=== PATIENT | female | born 1950 | race Caucasian/White ===

== ENCOUNTER → 2019-02-06 | Outpatient (CLI) | payer MEDICARE, OTHER ==
[~2019-02-06] MED LIST: ASPI-496 PO; DICL100G19 TP; DULO60CA7 PO; FEXO180T72 PO; FLAX10004 PO; FURO20TA3 PO; GABA300C10 PO; IBUP-1623 PO; LACT1CAP35 PO; LIDO700A42 TD; METF500T17 PO; MONT10TA9 PO; MULT-658 PO; POLY17PO5 PO; POTA10TA6 PO; TRAM200T35 PO; TRAM50TA2 PO; TRIA15CR53 TP; WHEA1POW5 PO; lidocaine; potassium chloride PO
[2019-02-06 11:23] LABS: BASOPHILS # (AUTO) 0.05 x10^3/uL (0-0.1); BASOPHILS % (AUTO) 1 % (0-1); EOSINOPHILS # (AUTO) 0.18 x10^3/uL (0-0.4); EOSINOPHILS % (AUTO) 3 % (1-7); LYMPHOCYTES # (AUTO) 1.35 x10^3/uL (1-3.4); LYMPHOCYTES % (AUTO) 20 % (22-44); MD NO; MEAN CORPUSCULAR HEMOGLOBIN 26.8 pg (27.0-34.8); MEAN CORPUSCULAR VOLUME 83.5 fL (80-100); MONOCYTES # (AUTO) 0.61 x10^3/uL (0.2-0.8); MONOCYTES % (AUTO) 9 % (2-9); NEUTROPHILS # (AUTO) 4.48 x10^3/uL (1.8-6.8); NEUTROPHILS % (AUTO) 67 % (42-75); PLATELET COUNT 311 x10^3/uL (130-400); RED BLOOD COUNT 4.14 x10^6/uL (3.82-5.3); RED CELL DISTRIBUTION WIDTH 14.3 % (9.6-15.2)
[2019-02-06 11:31] LABS: CULTURE INDICATED? NO; MICROSCOPIC NOT IND
[2019-02-06 11:32] LABS: INTERNATIONAL NORMALIZED RATIO 0.92 (0.93-1.1); PROTHROMBIN TIME 9.7 Seconds (9.6-11.5)
[2019-02-06 11:33] LABS: ALANINE AMINOTRANSFERASE 34 U/L (12-78); ALBUMIN 3.4 g/dL (3.4-5.0); ANION GAP 4 mmol/L (5-15); CALCIUM 8.9 mg/dL (8.5-10.1); CHLORIDE 109 mmol/L (98-107); CREATININE 0.64 mg/dL (0.55-1.02)
[2019-02-06 11:36] LABS: ALKALINE PHOSPHATASE 107 U/L (45-117); BILIRUBIN,TOTAL 0.2 mg/dL (0.2-1.0); TOTAL PROTEIN 6.7 g/dL (6.4-8.2)
== END | disposition home or self-care (01) ==
LOC: STAR 09:57
PROVIDERS: ATTEND Neurological Surgery
DX: Z01.811 Encounter for preprocedural respiratory examination (principal); M48.061 Spinal stenosis, lumbar region without neurogenic claudication
CPT/HCPCS: 36415; 71046; 80053; 81003; 85025; 85610; 85730; 93005

== ENCOUNTER 2019-02-20 07:36 | Observation (INO) | payer MEDICARE, OTHER ==
[~2019-02-20] VITALS: Ht 167.6 cm; Wt 103.4 kg
[2019-02-20] MEDS ORDERED: LACTATED RINGERS 1,000 ML IV SCH (08:20)
[2019-02-20 08:25] VITALS: BP 138/84
[2019-02-20] MEDS ORDERED: VANCOMYCIN 1,000 MG ONE (08:44)
[2019-02-20] MEDS ORDERED: EPINEPHRINE 1 MG/ML, 1ML ONE (08:44)
[2019-02-20] MEDS ORDERED: THROMBIN 5,000 UNIT VIAL TP ONE (08:44)
[2019-02-20] MEDS ORDERED: BUPIVACAINE/PF 0.25% ONE (08:44)
[2019-02-20] MEDS ORDERED: BACITRACIN 50,000 UNIT ONE (08:44)
[2019-02-20] MEDS ORDERED: BUPIVACAINE/EPI 0.5% 1:200K ONE (08:44)
[2019-02-20] MEDS ORDERED: GABAPENTIN 300 MG CAPSULE PO ONE (09:00)
[2019-02-20] MEDS ORDERED: ACETAMINOPHEN 500 MG TABLET PO ONE (09:00)
[2019-02-20] MEDS ORDERED: MIDAZOLAM 1 MG/ML, 2ML ONE (11:05)
[2019-02-20] MEDS ORDERED: FENTANYL PF 250 MCG/5ML ONE (11:05)
[2019-02-20] MEDS ORDERED: SCOPOLAMINE PATCH, 1.5MG PATCH.TD72 TD ONE (11:18)
[2019-02-20] MEDS ORDERED: MORPHINE SULFATE 4 MG/ML, 1ML IVPush PRN (11:30)
[2019-02-20] MEDS ORDERED: ONDANSETRON ODT 8 MG PO PRN (11:30)
[2019-02-20] MEDS ORDERED: hydrALAzine 20 MG/ML, 1ML IV PRN (11:30)
[2019-02-20] MEDS ORDERED: LABETALOL 5MG/ML, 20ML IV PRN (11:30)
[2019-02-20] MEDS ORDERED: OXYcodone 5 MG/5 ML ORAL.SOL UDC PO PRN (11:30)
[2019-02-20] MEDS ORDERED: PROMETHAZINE 12.5 MG SUPP PR PRN (11:30)
[2019-02-20] MEDS ORDERED: HALOPERIDOL 5 MG/ML IV PRN (11:30)
[2019-02-20] MEDS ORDERED: HYDROmorphone 2 MG/ML, 1ML IVPush PRN ×2 (11:30→14:00)
[2019-02-20] MEDS ORDERED: PROMETHAZINE 25 MG/ML, 1ML IV PRN (11:30)
[2019-02-20] MEDS ORDERED: FENTANYL PF 100 MCG/2ML IV PRN (11:30)
[2019-02-20] MEDS ORDERED: PROMETHAZINE 25 MG/ML, 1ML IM PRN ×3 (11:30→14:00)
[2019-02-20] MEDS ORDERED: MEPERIDINE/PF 25MG/0.5ML IVPush PRN (11:30)
[2019-02-20] MEDS ORDERED: PROMETHAZINE 25 MG SUPP PR PRN (11:30)
[2019-02-20] MEDS ORDERED: ONDANSETRON 2MG/ML, 2ML IV PRN (11:30)
[2019-02-20] MEDS ORDERED: CEFAZOLIN 1,000 MG ONE (12:53)
[2019-02-20] MEDS ORDERED: ONDANSETRON 2MG/ML, 2ML ONE (12:53)
[2019-02-20] MEDS ORDERED: NEOSTIGMINE 1 MG/ML, 10ML ONE (12:53)
[2019-02-20] MEDS ORDERED: PROPOFOL 10 MG/ML, 20ML ONE (12:53)
[2019-02-20] MEDS ORDERED: GLYCOPYRROLATE 0.2MG/1ML, 5ML ONE (12:53)
[2019-02-20] MEDS ORDERED: ROCURONIUM 10MG/ML,5ML ONE (12:53)
[2019-02-20] MEDS ORDERED: DEXAMETHASONE 4 MG/ML, 1ML ONE (12:53)
[2019-02-20] MEDS ORDERED: FENTANYL PF 100 MCG/2ML ONE (13:27)
[2019-02-20] MEDS ORDERED: HYDROmorphone PCA 30 MG/30 ML IV PRN (14:00)
[2019-02-20] MEDS ORDERED: PHARMACY INSTRUCTION MC PRN (14:00)
[2019-02-20] MEDS ORDERED: MAGNESIUM HYDROXIDE 8%, 30ML UDC PO PRN (14:00)
[2019-02-20] MEDS ORDERED: PHARMACY MAY ADJ FOR RENAL FX MC PRN (14:00)
[2019-02-20] MEDS ORDERED: DIPHENHYDRAMINE 50 MG/ML, 1ML IVPush PRN (14:00)
[2019-02-20] MEDS ORDERED: ONDANSETRON 2MG/ML, 2ML IVPush PRN (14:00)
[2019-02-20] MEDS ORDERED: BISACODYL 10 MG SUPP PR PRN (14:00)
[2019-02-20] MEDS ORDERED: MEPERIDINE/PF 100 MG/ML IM PRN (14:00)
[2019-02-20] MEDS ORDERED: OXYcodone/APAP 5/325MG TABLET PO PRN (14:00)
[2019-02-20] MEDS ORDERED: OXYcodone 5 MG/5 ML ORAL.SOL UDC ONE (14:51)
[2019-02-20] MEDS: SODIUM CHLORIDE 0.9% 1,000 ML IV SCH (15:55)
[2019-02-20] MEDS: GABAPENTIN 300 MG CAPSULE PO SCH ×2 (16:28→21:20)
[2019-02-20 19:31] VITALS: BP 132/76
[2019-02-20] MEDS: CEFAZOLIN PMX 1GM/50ML 50 ML IVPB SCH (21:20)
[2019-02-20] MEDS: SODIUM CHLORIDE FLUSH 10ML SYR IVF SCH (21:21)
[2019-02-20 23:54] VITALS: BP 122/67
[2019-02-21 03:55] VITALS: BP 141/57
[2019-02-21 04:41] LABS: ANION GAP 3 mmol/L (5-15); CALCIUM 8.7 mg/dL (8.5-10.1); CHLORIDE 108 mmol/L (98-107); CREATININE 0.72 mg/dL (0.55-1.02)
[2019-02-21] MEDS: CEFAZOLIN PMX 1GM/50ML 50 ML IVPB SCH (04:42)
[2019-02-21] MEDS: SODIUM CHLORIDE 0.9% 1,000 ML IV SCH ×2 (04:43→18:40)
[2019-02-21 07:05] VITALS: BP 115/66
[2019-02-21] MEDS: DULOXETINE 30 MG CAPSULE.DR PO SCH (07:59)
[2019-02-21] MEDS: POTASSIUM CHLORIDE 10 MEQ TABLET.ER PO SCH (07:59)
[2019-02-21] MEDS: MONTELUKAST 10 MG TABLET PO SCH (08:00)
[2019-02-21] MEDS: SENNA/DOCUSATE TABLET PO SCH (08:00)
[2019-02-21] MEDS: metFORMIN 500 MG TABLET PO SCH (08:00)
[2019-02-21] MEDS: POLYETHYLENE GLYCOL 17 GM PACKET PO SCH (08:00)
[2019-02-21] MEDS: GABAPENTIN 300 MG CAPSULE PO SCH ×3 (08:00→21:24)
[2019-02-21] MEDS: FUROSEMIDE 20 MG TABLET PO SCH (08:01)
[2019-02-21] MEDS: SODIUM CHLORIDE FLUSH 10ML SYR IVF SCH ×2 (08:01→21:24)
[2019-02-21] MEDS: TIZANIDINE 2MG TABLET PO PRN ×2 (08:16→17:10)
[2019-02-21] MEDS: HYDROcodone/APAP 10/325 MG TABLET PO PRN ×4 (10:46→23:31)
[2019-02-21 13:19] VITALS: BP 95/51
[2019-02-21 21:58] VITALS: BP 104/62
[2019-02-22] MEDS: TIZANIDINE 2MG TABLET PO PRN ×2 (01:12→09:41)
[2019-02-22 02:16] VITALS: BP 101/65
[2019-02-22] MEDS: HYDROcodone/APAP 10/325 MG TABLET PO PRN ×2 (03:53→08:32)
[2019-02-22] MEDS: SODIUM CHLORIDE 0.9% 1,000 ML IV SCH (08:00)
[2019-02-22 08:02] VITALS: BP 119/75
[2019-02-22] MEDS: POLYETHYLENE GLYCOL 17 GM PACKET PO SCH (08:22)
[2019-02-22] MEDS: MONTELUKAST 10 MG TABLET PO SCH (08:22)
[2019-02-22] MEDS: metFORMIN 500 MG TABLET PO SCH (08:22)
[2019-02-22] MEDS: SENNA/DOCUSATE TABLET PO SCH (08:22)
[2019-02-22] MEDS: GABAPENTIN 300 MG CAPSULE PO SCH (08:23)
[2019-02-22] MEDS: POTASSIUM CHLORIDE 10 MEQ TABLET.ER PO SCH (08:23)
[2019-02-22] MEDS: FUROSEMIDE 20 MG TABLET PO SCH (08:23)
[2019-02-22] MEDS: DULOXETINE 30 MG CAPSULE.DR PO SCH (08:23)
[2019-02-22] MEDS ORDERED: HYDR-3307 PO (08:48)
[2019-02-22] MEDS ORDERED: TIZA2CAP2 PO (08:49)
[2019-02-22] MEDS: SODIUM CHLORIDE FLUSH 10ML SYR IVF SCH (09:00)
[2019-02-22] MEDS ORDERED: TIZANIDINE 4MG TABLET ONE (09:38)
== END 2019-02-22 11:40 | disposition home or self-care (01) ==
LOC: OUT 07:36 → ORIP 13:47 → 4NOR 15:15
PROVIDERS: ADMIT Neurological Surgery; ATTEND Neurological Surgery
DX: M48.061 Spinal stenosis, lumbar region without neurogenic claudication (principal); M54.16 Radiculopathy, lumbar region; E11.9 Type 2 diabetes mellitus without complications; Z79.899 Other long term (current) drug therapy
CPT/HCPCS: 36415; 63047; 63048; 72100; 80048; 82040; 82962; 96365; 96366; 97116; 97161; 97165; G0378; J0690; J1100; J1170; J2250; J2405; J2704; J2710; J3010; J7030; J7120; J0171; J3370; J3490